=== PATIENT | female | born 1985 | race Caucasian/White ===

== ENCOUNTER 2018-05-10 05:15 | Day surgery (SDC) | payer BC ==
[~2018-05-10] VITALS: Ht 157.5 cm; Wt 61.4 kg
--- NOTE | ~2018-05-10 | OP ---
PATIENT NAME: EARL GRIGGS MEDICAL RECORD: [id number] :87 LOCATION:D.OPS ADMISSION DATE: SURGEON: LILIAN DE LA CRUZ MD DATE OF OPERATION: 05/10/2018 PROCEDURE: Colonoscopy with biopsy, colonoscopy with stool collection for xTAG. CRIMINAL INTELLIGENCE SPECIALIST: Lilian De La Cruz MD SCOPE: An Olympus video colonoscope. MEDICATIONS: Provided Per TIVA. The patient received 220 mg of propofol for this procedure, O2 4 liters. INDICATION FOR THE PROCEDURE: Bilateral lower quadrant abdominal pain and persistent diarrhea. FINDINGS: Informed consent was given. The patient was made comfortable with the above medications. After reaching an adequate level of sedation by slow IV push, the patient was placed on her left side. The rectal exam revealed good sphincter tone. No fissures or fistulas were appreciated. No external skin tags were seen. The colonoscope was advanced to the cecum where the ileocecal valve and appendiceal orifice were identified. The small bowel was intubated and minimal inflammation was observed. Biopsies were obtained. The appendiceal orifice was documented and the ileocecal valve was noted to have some mild erythema and edema and again biopsies were taken. The patient's stool was collected for parasites, viruses, and Gram-negative enteric organism such as Salmonella, Shigella, Campylobacter, yersinia, and E. coli. We also collected stool for Clostridium difficile toxin. On withdrawal of the scope, mucosa was carefully inspected and the colon was felt to be fairly normal in appearance until reaching the distal sigmoid and rectosigmoid area where some shallow ulcerations were appreciated and some areas of erythema and edema were noted. Biopsies were again taken of this area. No polyps, diverticula, or masses were observed. The scope was then withdrawn. It should be noted that on retroflexion very mild internal hemorrhoids were seen. IMPRESSION: 1. Mild inflammation within the terminal ileum, biopsied. 2. Appendiceal orifice, cecum, and ileocecal valve identified. 3. Mild inflammation on the ileocecal valve, biopsied. 4. xTAG obtained for stool collection for viruses, bacteria, and parasites. 5. Inflammation with some mild areas of erythema and some shallow ulcerations seen in the distal sigmoid and rectosigmoid area and biopsies taken. 6. Mild internal hemorrhoids. 7. No external hemorrhoids. PLAN: 1. We will again prescribe Flagyl at a dose of 500 mg 1 p.o. t.i.d. for 10 days. 2. Probiotics. 3. Low residue diet. 4. No anti-inflammatory drugs for at least 14 days. 5. Return to clinic for 2 weeks. 6. Stool samples sent. The patient can also use some [id number] Imodium, OPERATIVE REPORT [id number] EARL GRIGGS no more than 6 per day. In a week, she can change her diet to a high fiber diet. 7. We will check all biopsy reports and treat for any microscopic colitis such as lymphocytic colitis, eosinophilic gastroenteritis, or collagenous colitis. 8. We will treat for any bacteria, viruses, or parasites. TRANSINT:[id number] Voice Confirmation ID: [id number] DOCUMENT ID: [id number] LILIAN DE LA CRUZ MD CC: [email or web address] HAILE [id number] DICTATION DATE: 05/10/18 0746 SENIOR CIVIL ENGINEER: 05/10/18 0817 [facility] [address] [place] [address]
[2018-05-10 05:52] LABS: HEMATOCRIT 43.7 % (36.0-48.0); HEMOGLOBIN 15.2 g/dL (12-16); MCH 31.4 pg (26.0-34.0); MCHC 34.8 g/dL (31.0-37.0); MCV 90.3 fL (80.0-100.0); MEAN PLATELET VOLUME 9.4 fL (7.4-10.4); RBC 4.84 10x6/uL (4.00-5.40); RDW 13.4 % (11.5-14.5); WBC 7.6 10x3/uL (4.8-10.8)
[2018-05-10] MEDS ORDERED: ACETAMINOPHEN500 M1 PO (06:11)
[2018-05-10] MEDS ORDERED: MELATONIN10 M1 PO (06:11)
[2018-05-10 06:13] LABS: HCG SERUM NEGATIVE (NEGATIVE)
[2018-05-10 06:17] VITALS: BP 129/78; Ht 157.5 cm; Wt 61.4 kg
--- NOTE | 2018-05-10 08:22 | NUR ---
DC INSTRUCTIONS GIVEN TO PT/FAMILY. STATE UNDERSTANDING. DC'D IV CATH FULLY INTACT.
--- NOTE | 2018-05-10 09:05 | NUR ---
PT LEFT UNIT VIA WC AT 0903
== END 2018-05-10 09:03 | disposition home or self-care (01) ==
LOC: D.OPS 05:15
PROVIDERS: Anesthesiology; ATTEND Internal Medicine Gastroenterology
DX: K52.9 Noninfective gastroenteritis and colitis, unspecified (principal); K64.8 Other hemorrhoids; Z01.812 Encounter for preprocedural laboratory examination